=== PATIENT | male | born 1940 | race Caucasian/White ===

== ENCOUNTER 2020-12-01 11:07 | Outpatient (CLI) | payer MEDICARE, BC, SELFPAY ==
--- NOTE | 2020-12-01 11:20 | FL_ITS ---
WS: [id number] FL barium swallow modifd [id number] REASON FOR EXAM: Other dysphagia FLUOROSCOPY TIME: 2.1 minutes FINDINGS: The swallowing of varying consistencies of area and was monitored and recorded fluoroscopically. A re port of the detailed analysis of the swallowing will be rendered by the speech therapy department. Small amount of aspiration was observed with the swallowing of thin barium. This also occurred with t he chin tucked. FL/FL barium swallow modifd [id number] IMPRESSION: Modified barium swallow.
== END 2020-12-01 11:08 | disposition home or self-care (01) ==
LOC: RAD 11:16
PROVIDERS: PCP Nurse Practitioner Family; Visit Provider Nurse Practitioner Family
DX: R13.19 Other dysphagia (principal)
CPT/HCPCS: 74230; 92611